=== PATIENT | female | born 1960 | race Caucasian/White ===

== ENCOUNTER 2017-12-02 20:00 | Inpatient (IN) | payer BC ==
[~2017-12-02] VITALS: Ht 165.1 cm; Wt 79.4 kg
[2017-12-02] MEDS ORDERED: IV NORMAL SALINE 1000 ML BAG IV ONE ×2 (20:45)
[2017-12-02] MEDS ORDERED: MECLIZINE HCL 25 MG TABLET ONE ×2 (20:45→22:44)
[2017-12-02] MEDS ORDERED: ONDANSETRON 4 MG/2 ML VIAL IV ONE ×2 (20:45→21:30)
[2017-12-02] MEDS ORDERED: ONDANSETRON 4 MG/2 ML VIAL ONE ×2 (20:45→21:27)
[2017-12-02] MEDS ORDERED: MECLIZINE HCL 25 MG TABLET PO ONE ×2 (20:45→22:30)
[2017-12-02 21:15] LABS: BASOPHILS % (AUTO) 0.2 % (0.0-2.0); EOSINOPHILS # (AUTO) 0.1 K/uL (0.0-0.7); HEMATOCRIT 39.4 % (31.2-41.9); HEMOGLOBIN 13.2 g/dL (10.9-14.3); LYMPHOCYTES # (AUTO) 1.3 K/uL (20.0-40.0); LYMPHOCYTES % (AUTO) 14.8 % (20.5-51.5); MEAN CORPUSCULAR HEMOGLOBIN 31.2 uug (24.7-32.8); MEAN CORPUSCULAR HGB CONC 34 g/dL (32.3-35.6); MONOCYTES # (AUTO) 0.3 K/uL (2.0-10.0); MONOCYTES % (AUTO) 3.7 % (0.0-11.0); NEUTROPHILS % (AUTO) 80.3 % (38.5-71.5); PLATELET COUNT (AUTO) 319 K/uL (179-408); RED BLOOD CELL COUNT(AUTO) 4.23 MIL/uL (3.63-4.92); WHITE BLOOD COUNT (AUTO) 8.7 K/uL (3.8-11.8)
[2017-12-02 21:22] LABS: CREATININE 0.6 mg/dL (0.6-1.3); POTASSIUM 3.1 mmol/L (3.5-5.1)
[2017-12-02 21:28] LABS: BILIRUBIN,DIRECT 0.1 mg/dL (0.0-0.2); BILIRUBIN,TOTAL 0.5 mg/dL (0.2-1.0); TOTAL PROTEIN, SERUM 7.9 g/dL (6.4-8.2)
[2017-12-03] MEDS ORDERED: TRIA1CAP6 PO (00:38)
[2017-12-03] MEDS ORDERED: SERT50TA PO (00:38)
[2017-12-03] MEDS ORDERED: LOSA50TA21 PO (00:38)
[2017-12-03] MEDS ORDERED: ATOR20TA PO (00:38)
[2017-12-03] MEDS ORDERED: MESA1.2T PO (00:38)
[2017-12-03 01:15] VITALS: BP 137/77
[2017-12-03] MEDS ORDERED: Z GUARD REMEDY PASTE 57 GM TUBE TOP PRN (02:45)
[2017-12-03] MEDS ORDERED: ONDANSETRON 4 MG/2 ML VIAL IV PRN (02:45)
[2017-12-03] MEDS ORDERED: DIAZEPAM 5 MG TABLET PO PRN (02:45)
[2017-12-03] MEDS: IV NS 1000 ML 1,000 ML IV PRN (02:59)
[2017-12-03] MEDS: ACETAMINOPHEN 325 MG TABLET PO PRN ×2 (03:17→09:00)
[2017-12-03] MEDS: MECLIZINE HCL 25 MG TABLET PO PRN ×2 (03:17→09:00)
[2017-12-03 04:00] VITALS: BP 121/71
[2017-12-03 06:55] LABS: BASOPHILS % (AUTO) 0.2 % (0.0-2.0); EOSINOPHILS % (AUTO) 0.2 % (0.0-7.0); HEMOGLOBIN 11.6 g/dL (10.9-14.3); LYMPHOCYTES % (AUTO) 17.8 % (20.5-51.5); MEAN CORPUSCULAR HEMOGLOBIN 31.1 uug (24.7-32.8); MEAN CORPUSCULAR HGB CONC 34 g/dL (32.3-35.6); MEAN CORPUSCULAR VOLUME 91.2 fL (75.5-95.3); MONOCYTES # (AUTO) 0.3 K/uL (2.0-10.0); MONOCYTES % (AUTO) 5.6 % (0.0-11.0); NEUTROPHILS # (AUTO) 4.5 K/uL (1.8-8.9); NEUTROPHILS % (AUTO) 76.2 % (38.5-71.5); PLATELET COUNT (AUTO) 322 K/uL (179-408); RED BLOOD CELL COUNT(AUTO) 3.73 MIL/uL (3.63-4.92); WHITE BLOOD COUNT (AUTO) 5.9 K/uL (3.8-11.8)
[2017-12-03 07:16] LABS: BILIRUBIN,TOTAL 0.6 mg/dL (0.2-1.0); CREATININE 0.6 mg/dL (0.6-1.3); MAGNESIUM 1.8 mg/dL (1.8-2.4); PHOSPHOROUS 3.3 mg/dL (2.5-4.9); POTASSIUM 3.3 mmol/L (3.5-5.1)
[2017-12-03] MEDS ORDERED: MESALAMINE 500 MG CAPSULE.SA PO SCH ×2 (09:00)
[2017-12-03] MEDS: SERTRALINE HCL 50 MG TABLET PO SCH (09:00)
[2017-12-03] MEDS: LOSARTAN POTASSIUM 50 MG TABLET PO SCH (09:00)
[2017-12-03] MEDS: TRIAMTERENE/HCTZ 75-50 MG TABLET PO SCH (09:00)
[2017-12-03] MEDS ORDERED: POTASSIUM CHLORIDE 20 MEQ TAB.PRT.SR PO ONE (10:45)
[2017-12-03 11:07] VITALS: BP 108/64
[2017-12-03 14:00] VITALS: BP_SYST 120; BP_SYST 127; BP_SYST 129; BP_DIAS 67; BP_DIAS 72; BP_DIAS 77
[2017-12-03 15:37] VITALS: BP 120/67
[2017-12-03] MEDS: ASPIRIN EC 81 MG TABLET.DR PO SCH (15:59)
[2017-12-03 16:51] LABS: *BILIRUBIN,URIN NEGATIVE (NEGATIVE); *BLOOD, URINE Trace-intact (NEGATIVE); *CLARITY,URINE CLEAR (CLEAR); *COLOR,URINE YELLOW (YELLOW); *KETONES,URINE NEGATIVE (NEGATIVE); *PROTEIN,URINE NEGATIVE (NEGATIVE); *UROBILINOGEN,URINE 0.2 E.U./dl (NORMAL); LEUKOCYTE ESTERASE ,URINE NEGATIVE (NEGATIVE); NITRITE, URINE NEGATIVE (NEGATIVE); UGLUCOSE NEGATIVE (NEGATIVE)
[2017-12-03 17:06] LABS: BACTERIA,URINE NONE SEEN /HPF (NONE SEEN); RBC,URINE 0-3 /HPF (0-3); SQUAMOUS EPITHELIAL CELL,UR FEW /HPF (NONE SEEN); WBC,URINE 0-3 /HPF (0-3)
[2017-12-03] MEDS: PANTOPRAZOLE SODIUM 40 MG TABLET.DR PO SCH (17:43)
[2017-12-03 20:00] VITALS: BP 136/60
[2017-12-03] MEDS ORDERED: ATORVASTATIN 20 MG TABLET PO SCH (21:00)
[2017-12-04] MEDS: IV NS 1000 ML 1,000 ML IV PRN (01:25)
[2017-12-04 04:00] VITALS: BP 112/64
[2017-12-04] MEDS: PANTOPRAZOLE SODIUM 40 MG TABLET.DR PO SCH (06:06)
[2017-12-04 06:30] LABS: BASOPHILS % (AUTO) 0.8 % (0.0-2.0); EOSINOPHILS # (AUTO) 0.2 K/uL (0.0-0.7); EOSINOPHILS % (AUTO) 3.8 % (0.0-7.0); HEMATOCRIT 35.6 % (31.2-41.9); HEMOGLOBIN 11.9 g/dL (10.9-14.3); LYMPHOCYTES # (AUTO) 1.7 K/uL (20.0-40.0); LYMPHOCYTES % (AUTO) 33.1 % (20.5-51.5); MEAN CORPUSCULAR HEMOGLOBIN 31.3 uug (24.7-32.8); MEAN CORPUSCULAR HGB CONC 33 g/dL (32.3-35.6); MEAN CORPUSCULAR VOLUME 93.8 fL (75.5-95.3); MONOCYTES # (AUTO) 0.3 K/uL (2.0-10.0); MONOCYTES % (AUTO) 6.7 % (0.0-11.0); NEUTROPHILS # (AUTO) 2.9 K/uL (1.8-8.9); NEUTROPHILS % (AUTO) 55.6 % (38.5-71.5); PLATELET COUNT (AUTO) 294 K/uL (179-408); WHITE BLOOD COUNT (AUTO) 5.2 K/uL (3.8-11.8)
[2017-12-04 06:42] LABS: CREATININE 0.5 mg/dL (0.6-1.3); MAGNESIUM 1.8 mg/dL (1.8-2.4); PHOSPHOROUS 3.1 mg/dL (2.5-4.9); POTASSIUM 3.6 mmol/L (3.5-5.1)
[2017-12-04] MEDS: ASPIRIN EC 81 MG TABLET.DR PO SCH (08:41)
[2017-12-04] MEDS: TRIAMTERENE/HCTZ 75-50 MG TABLET PO SCH (08:41)
[2017-12-04] MEDS: LOSARTAN POTASSIUM 50 MG TABLET PO SCH (08:41)
[2017-12-04] MEDS: SERTRALINE HCL 50 MG TABLET PO SCH (08:41)
[2017-12-04] MEDS: MECLIZINE HCL 25 MG TABLET PO PRN (08:47)
[2017-12-04] MEDS ORDERED: MESALAMINE 1.2 GM PO SCH (09:00)
[2017-12-04] MEDS ORDERED: MESALAMINE 500 MG CAPSULE.SA PO SCH (09:00)
[2017-12-04 11:33] VITALS: BP 111/71
[2017-12-04 11:43] VITALS: BP_SYST 118; BP_SYST 121; BP_SYST 122; BP_DIAS 71; BP_DIAS 76; BP_DIAS 83
[2017-12-04] MEDS ORDERED: ONDA4TAB5 PO (13:31)
[2017-12-04] MEDS ORDERED: MECL-102 PO (13:31)
[2017-12-04 15:05] VITALS: BP 108/61
== END 2017-12-04 15:25 | disposition home or self-care (01) | DRG 149 ==
LOC: ER 20:01 → MED 12-03 01:07
PROVIDERS: ADMIT Nurse Practitioner Acute Care; ATTEND Nurse Practitioner Acute Care
DX: H81.10 Benign paroxysmal vertigo, unspecified ear (principal); E86.0 Dehydration; E78.5 Hyperlipidemia, unspecified; E87.6 Hypokalemia; E83.51 Hypocalcemia; E88.09 Other disorders of plasma-protein metabolism, not elsewhere classified; I10 Essential (primary) hypertension; Z80.0 Family history of malignant neoplasm of digestive organs; Z82.49 Family history of ischemic heart disease and other diseases of the circulatory system; Z79.899 Other long term (current) drug therapy; R51 Headache; R53.1 Weakness; Z98.890 Other specified postprocedural states; Z88.1 Allergy status to other antibiotic agents; I45.81 Long QT syndrome
CPT/HCPCS: 36415; 70450; 70551; 71045; 83735; 84100; 84443; 85025; 87086; 93005; 97110; A4663; J2405; J7030; J8597